=== PATIENT | male | born 1965 | race Two or more races ===

== ENCOUNTER 2024-06-12 17:29 | Emergency (ER) | payer OTHER ==
[~2024-06-12] VITALS: Ht 167.6 cm; Wt 113.4 kg
[2024-06-12] MEDS ORDERED: COZAAR25 MG (17:42)
[2024-06-12] MEDS ORDERED: 0.9 % SODIUM CHLORIDE 1,000 ML IV ONE (17:45)
[2024-06-12] MEDS ORDERED: FAMOtidine 10 MG/ML (4ML VIAL) IV ONE (17:45)
[2024-06-12] MEDS ORDERED: PROMETHAZINE HCL 50 MG/ML AMPUL IM ONE (17:45)
[2024-06-12 18:05] LABS: HEMATOCRIT 43.5 % (39.0-48.0); HEMOGLOBIN 14.6 g/dL (13-16.00); MEAN CELL VOLUME 87.2 fL (80.0-100.00); MEAN CORPUSCULAR HEMOGLOBIN 29.3 pg (27.00-32.0); MEAN CORPUSCULAR HGB CONC 33.5 g/dl (32.0-36.0); PLATELET COUNT 199 K/uL (150-450); RED BLOOD COUNT 4.98 M/uL (4.00-6.00); RED CELL DISTRIBUTION WIDTH 14.2 % (11.5-14.5)
[2024-06-12 18:48] LABS: ALBUMIN 3.6 gm/dL (3.4-5.0); BILIRUBIN TOTAL 0.32 mg/dL (0.3-1.2); CALCIUM 8.3 mg/dL (8.5-10.1); CREATININE SERUM 0.93 mg/dL (0.70-1.30); GFR 82.88; GLOBULINA 3.6 G/DL (2.4-3.5); POTASSIUM 3.77 mEq/L (3.5-5.1); TOTAL PROTEIN 7.2 gm/dL (6.4-8.2)
[2024-06-12 18:58] LABS: ABG PH 7.401 (7.35-7.45)
[2024-06-12 18:59] LABS: ABG pCO2 35.4 mmHg (35-45); BASE EXCESS -2.6 mmol/l; BICARBONATE 21.5 mmol/l (23-25); SaO2 93.1 %; Tco2 22.6 mmol/l; allen test SATISFACTORY; o2 21 %; puncture site RADIAL RIGHT
[2024-06-12 19:02] LABS: ABG PO2 67.7 mmHg (80-100)
[2024-06-12 19:43] LABS: PH,URINE 5.5 (5.0-8.0); URINE APPEARANCE Clear; URINE BILIRRUBIN Negative (NEGATIVE); URINE BLOOD Negative; URINE COLOR Yellow; URINE GLUCOSE Negative (NEGATIVE); URINE KETONE Negative (NEGATIVE); URINE LEUKOCYTE Negative; URINE NITRATE Negative; URINE PROTEIN Negative (NEGATIVE); URINE UROBILINOGEN 0.2 E.U./dl
[2024-06-12 19:44] LABS: URINE EPITHELIAL CELLS 1.5 uL (0.0-38.8)
== END 2024-06-12 22:44 | disposition home or self-care (01) ==
LOC: ER 17:29
PROVIDERS: General Practice
DX: R11.0 Nausea (principal); R53.1 Weakness; R10.9 Unspecified abdominal pain; I10 Essential (primary) hypertension